=== PATIENT | female | born 1955 | race African-American/Black ===

== ENCOUNTER 2020-11-14 09:53 | Emergency (ER) | payer MEDICAID, SELFPAY ==
[2020-11-14 10:01] VITALS: BP 132/82; PULSE 87; RESP 18; TEMP 36.7; O2SAT 99
--- NOTE | 2020-11-14 10:37 | ED.DENTAL ---
HPI - Dental/Oral General Chief complaint: Dental/Oral Stated complaint: tooth pain Source: patient and RN notes reviewed Mode of arrival: ambulatory History of Present Illness MD Complaint: tooth pain Teeth map: 1. edema and erythema fractured tooth 2. edema and erythema fractured tooth 3. edema and erythema fractured tooth Related Data Home Medications Medication Instructions Recorded Confirmed Vitamins 11/14/20 Allergies Allergy/AdvReac Type Severity Reaction Status Date / Time No Known Allergies Allergy Unverified 09/19/18 13:51 Exam Narrative: GENERAL: This is a well-nourished, well-developed patient, in no apparent distress. HEAD: normocephalic, atraumatic. EYES: PERRL. Sclera clear/white. Vision is grossly intact. EARS: External ears normal, auditory canals clear and without drainage, TMs normal without perforation. Hearing grossly intact. NOSE: External nose normal with no obvious nasal discharge, nares without redness, no rhinorrhea. THROAT: Mucous membranes moist, posterior pharynx clear. Tooth #14,15,16 edema and erythema of the gumline and fractured tooth. Swollen left side of face NECK: Neck supple, non-tender without lymphadenopathy, masses or thyromegaly. CARDIOVASCULAR: Regular rate and rhythm without murmurs, gallops, or rubs. RESPIRATORY: Clear to auscultation. Breath sounds equal bilaterally. No wheezes, rales, or rhonchi. GASTROINTESTINAL: Abdomen soft, non-tender, nondistended. Bowel sounds are active. No hepato-splenomegaly, or palpable masses. No guarding. SKIN: warm, intact with no suspicious lesions or rash, good texture and turgor. NEURO: awake, alert, and oriented to person, place and time. There were no obvious focal neurologic abnormalities. Steady gait EXTREMITIES: Normal range of motion. No edema. No calf tenderness. Negative Homans sign bilaterally. BACK: Nontender without deformity or crepitance. No flank tenderness. Course Course Emergency Course: Patient will receive Augmentin x10 days with pain medication and instructed to follow-up with her dentist Vital Signs Vital signs: Vital Signs Temperature 98.1 F 11/14/20 10:01 Pulse Rate 87 11/14/20 10:01 Respiratory Rate 18 11/14/20 10:01 Blood Pressure 132/82 11/14/20 10:01 Pulse Oximetry 99 11/14/20 10:01 Temperature 98.1 F 11/14/20 10:01 Pulse Rate 87 11/14/20 10:01 Respiratory Rate 18 11/14/20 10:01 Blood Pressure 132/82 11/14/20 10:01 Pulse Oximetry 99 11/14/20 10:01 MDM - Dental/Oral Differential Diagnosis Differential diagnosis: Likely gingival abscess, dental caries, dental abscess and fracture of tooth Discharge Plan Discharge Clinical Impression: Dental caries, Dental abscess Patient Disposition: Home, Self-Care Condition: Stable Instructions: Antibiotic Form, Dental Abscess (ED), Toothache (ED) Additional Instructions: Follow up with dentist What can be done to prevent this health problem? ?[place] your teeth after every meal but at least 2 times a day. Do not dun[place] when you brush. Spend 2 full minutes cleaning all of your teeth. Use a toothpaste with fluoride. ?Use dental floss to clean between your teeth at least every day. ?Try to stay away from foods and drinks that are high in sugar and starch, such as chocolate, sweets, cakes, and drinks that have sugar. ?See your dentist for regular cleaning and checkups. What problems could happen? If the tooth decay is not fixed you could have: ?Pain ?Infection ?Tooth loss Prescriptions: New amoxicillin 500 mg capsule 500 mg PO TID 10 Days Qty: 30 RF: 1 naproxen 500 mg tablet,delayed release (DR/EC) 500 mg PO BID PRN (Reason: pain) Qty: 30 RF: 0 hydrocodone-acetaminophen 10-325 mg tablet 1 tablet PO Q4H PRN (Reason: pain) Qty: 15 RF: 0 No Action Vitamins RF: 0 Follow-up/Referrals: UNKNOWN,DOCTOR [Primary Care Provider] - Time of Disposition: 10:37
== END 2020-11-14 10:40 | disposition home or self-care (01) ==
PROVIDERS: Emergency Provider Nurse Practitioner
DX: K02.9 Dental caries, unspecified (principal); K04.7 Periapical abscess without sinus
CPT/HCPCS: 99213; G0463

== ENCOUNTER 2022-02-18 19:10 | Emergency (ER) | payer MEDICARE, MEDICAID, SELFPAY ==
[2022-02-18 19:54] VITALS: BP 149/80; PULSE 82; RESP 18; TEMP 36.5; O2SAT 100
--- NOTE | 2022-02-18 20:05 | ED.LOWEXIN ---
HPI - Extremity Injury (Lower) General Chief Complaint: Extremity Injury, Lower Stated Complaint: Left Calf Knee Time Seen by Provider: 02/18/22 20:05 Source: patient, RN notes reviewed and old records reviewed Mode of arrival: ambulatory Limitations: no limitations History of Present Illness HPI Narrative: 66-year-old female presents to the [facility] with left calf pain after falling on her mom last night. States that she landed on her knees. Has been applying magnesium a while and icing it. Pain with walking. No swelling or bruising noted. Negative Homans sign. No edema. denies any chest pain or shortness of breath. Related Data Home Medications Medication Instructions Recorded Confirmed atorvastatin 10 mg tablet 10 mg PO DAILY 02/18/22 02/18/22 Allergies Allergy/AdvReac Type Severity Reaction Status Date / Time No Known Allergies Allergy Verified 02/18/22 20:29 Review of Systems Review of Systems: All systems reviewed & are unremarkable except as noted in HPI and below Constitutional: Constitutional: Reports no additional constitutional complaints, Denies chills and Denies fever(s) Eyes: Eyes: Reports no additional eye complaints ENT: Reports system reviewed and no additional complaints, except as documented Cardiovascular: Cardiovascular: Reports no additional cardiovascular complaints Respiratory: Respiratory: Reports no additional respiratory complaints Gastrointestinal: Gastrointestinal: Reports no additional gastrointestinal complaints Musculoskeletal: Musculoskeletal: Reports as per HPI and Reports muscle cramps (Left calf) Integumentary/Breasts: Skin/Breast: Reports system reviewed and no additional complaints, except as docu Neurologic: Reports system reviewed and no additional complaints, except as documented Psychiatric: Psychiatric: Reports no additional psychiatric complaints Allergic/Immunologic: Allergic/Immunologic: Reports no additional allergic/immunologic complaints [facility] Surgical History Surgical History (Updated 02/18/22 @ 20:28 by Samaria Bourne APRN) History of tonsillectomy Social History Social History (Updated 02/18/22 @ 20:27 by Samaria Bourne APRN) Living arrangements: with family Gender identity (if verbalized by the patient): Female Comments At the time of my signature, I reviewed and agree with the nursing past medical, surgical, social, and family history. There is no relevant family history pertinent to the patient complaint. Exam Const: General: healthy appearing, comfortable, no acute distress, well developed, alert and well nourished Nutritional Appearance: well nourished and obese Orientation/consciousness: patient oriented x3 Limitations: no limitations HENMT: Head: normal to inspection Ears: external ears normal Face/Nose/Sinus: Normal external nose present Face and sinus: normal facial exam Mouth: Yes Normal oral and palatal mucosa present, Yes lip normal and Yes moist mucous membranes Eyes: General: appearance normal, both eyes and all related structures Pupils: Equal, round and reactive pupils present Neck: Neck: normal visual inspection, full ROM, no lymphadenopathy and no meningeal signs Chest: Chest palpation & inspection: normal inspection of the chest Resp: Effort & Inspection: normal respiratory effort and no use of accessory muscles Auscultation: clear to auscultation bilaterally, no crackles, no rales, no rhonchi and no wheezes Cardio: Rate: regular rate Rhythm: regular rhythm Back/Spine/Pelvis: Cervical Spine: cervical ROM normal and No Cervical spine tenderness Thoracic/Lumbar Spine: thoracic and lumbar spine normal to inspection and thoraco-lumbar ROM normal Skin: General skin exam: normal color Rashes: no rashes Wounds: no wounds Neuro: General: patient oriented x3, moves all extremities, no meningeal signs and no focal motor deficits Cranial nerves: Yes Equal, round and reactive pupils present Speech: normal s
== END 2022-02-18 20:53 | disposition home or self-care (01) ==
PROVIDERS: Emergency Provider Nurse Practitioner; PCP Nurse Practitioner Family
DX: S86.112A Strain of other muscle(s) and tendon(s) of posterior muscle group at lower leg level, left leg, initial encounter (principal); W19.XXXA Unspecified fall, initial encounter; E78.00 Pure hypercholesterolemia, unspecified
CPT/HCPCS: 99213; G0463

== ENCOUNTER 2022-05-14 16:57 | Emergency (ER) | payer MEDICARE, MEDICAID, SELFPAY ==
--- NOTE | ~2022-05-14 | XR_ITS ---
EXAM: XR shoulder LT min 2V DATE: 05/14/2022 17:30 HISTORY: Left shoulder pain, limited ROM, no injury . COMPARISON: None available. FINDINGS: Normal mineralization. No fracture or dislocation. No lytic or blastic lesion. Moderate AC joint hypertrophy. Glenohumeral narrowing with extensive subchondral cyst formation in the glenoid a nd humeral head, with osteophytosis. Likely rotator cuff calcific tendinitis. No erosion or periostea l change. Soft tissues within normal limits. IMPRESSION: No acute osseous finding in the left shoulder. Moderate-severe glenohumeral arthritic zamzam nge. Reviewed, dictated and finalized at location [facility]. [facility] IMPRESSION: No acute osseous finding in the left shoulder. Moderate-severe madeline ohumeral arthritic change.
[2022-05-14 17:06] VITALS: BP 145/71; PULSE 95; RESP 16; TEMP 36.3; O2SAT 99
--- NOTE | 2022-05-14 17:48 | ED.UPPEXIN ---
HPI - Extremity Injury (Upper) General Chief Complaint: Extremity Injury, Upper Stated Complaint: Left Shoulder Pain Time Seen by Provider: 05/14/22 17:10 Source: patient Mode of arrival: ambulatory Limitations: no limitations History of Present Illness HPI narrative: 66 yo F presents with c/o pain and decreased ROM to L shoulder for the past 2 to 3 days. States she has been stressed and busy due to planning a family members . denies injury. Taking OTC pain medications and not helping pain. All systems reviewed and negative except as noted above. Related Data Allergies Allergy/AdvReac Type Severity Reaction Status Date / Time No Known Allergies Allergy Verified 05/14/22 17:02 Review of Systems Review of Systems: CONSTITUTIONAL: Denies fever, chills, or sweats. EYES: Denies visual changes, redness, or discharge. ENT: Denies rhinorrhea, congestion, sore throat, or otalgia. CARDIOVASCULAR: Denies chest pain, palpitations, or edema. RESPIRATORY: Denies cough or dyspnea. GASTROINTESTINAL: Denies abdominal pain, nausea, vomiting, or diarrhea. GENITOURINARY: Denies dysuria or hematuria. SKIN: Denies rash or itching. MUSCULOSKELETAL: Denies back pain, , or myalgia. Reports L shoulder pain. NEUROLOGIC: Denies headache, numbness, or weakness. PSYCHIATRIC: Denies anxiety or depression. All other systems reviewed are negative, except as documented in HPI. [facility] Surgical History Surgical History (Updated 02/18/22 @ 20:28 by Samaria Bourne APRN) History of tonsillectomy Social History Social History (Updated 02/18/22 @ 20:27 by Samaria Bourne APRN) Living arrangements: with family Gender identity (if verbalized by the patient): Female Comments At time of signature, agree with nursing past medical, surgical, social and family history. There is no relevant family history pertinent to the presenting complaint. Exam Narrative: GENERAL: This is a well-nourished, well-developed patient, in no apparent distress. HEAD: normocephalic, atraumatic. EYES: PERRL. Sclera clear/white. Vision is grossly intact. EARS: External ears normal NOSE: External nose normal NECK: Neck supple, non-tender without lymphadenopathy, masses or thyromegaly. CARDIOVASCULAR: Regular rate and rhythm without murmurs, gallops, or rubs. RESPIRATORY: Clear to auscultation. Breath sounds equal bilaterally. No wheezes, rales, or rhonchi. SKIN: warm, Dry, intact with no suspicious lesions or rash, good texture and turgor. NEURO: awake, alert, and oriented to person, place and time. There were no obvious focal neurologic abnormalities. EXTREMITIES: Tenderness to AC joint of L shoulder with decreased ROM. Can abduct and flex to about 30 degrees. Course Course Level of Care: Express Care Visit Vital Signs Vital signs: Vital Signs Temperature 36.3 C L 05/14/22 17:06 Pulse Rate 95 05/14/22 17:06 Respiratory Rate 16 05/14/22 17:06 Blood Pressure 145/71 H 05/14/22 17:06 Pulse Oximetry 99 05/14/22 17:06 Oxygen Delivery Room Air 05/14/22 17:06 Temperature 36.3 C L 05/14/22 17:06 Pulse Rate 95 05/14/22 17:06 Respiratory Rate 16 05/14/22 17:06 Blood Pressure 145/71 H 05/14/22 17:06 Pulse Oximetry 99 05/14/22 17:06 Oxygen Delivery Room Air 05/14/22 17:06 reviewed MDM - Extremity Injury (Upper) MDM Narrative Medical decision making narrative: discussed x-ray results with pt. Recommend follow up with orthopedics for further evaluation. Imaging Data My impression: agree with radiologist Radiologist's impression: EXAM:? XR shoulder LT min 2V DATE: 05/14/2022 17:30 HISTORY: Left shoulder pain, limited ROM, no injury . COMPARISON:? None available. FINDINGS:? Normal mineralization. No fracture or dislocation. No lytic or blastic lesion. Moderate AC joint hypertrophy. Glenohumeral narrowing with extensive subchondral cyst formation in the glenoid and humeral head, with osteophytosis. Likely r
--- NOTE | 2022-05-14 18:24 | PC.NURSE ---
called and aware of unable to change tramadol and stated to keep [facility].
== END 2022-05-14 18:01 | disposition home or self-care (01) ==
PROVIDERS: Emergency Provider Nurse Practitioner Family; PCP Nurse Practitioner Family
DX: M85.612 Other cyst of bone, left shoulder (principal); M77.8 Other enthesopathies, not elsewhere classified; M19.012 Primary osteoarthritis, left shoulder; E78.00 Pure hypercholesterolemia, unspecified
CPT/HCPCS: 73030; 99213; G0463

== ENCOUNTER 2024-01-26 15:44 | Emergency (ER) | payer MEDICARE, MEDICAID, SELFPAY ==
[2024-01-26 15:53] VITALS: BP 144/78; PULSE 85; RESP 16; TEMP 36.4; O2SAT 99
--- NOTE | 2024-01-26 16:35 | ED.UPPEXIN ---
HPI - Extremity Injury (Upper) General Chief Complaint: Extremity Injury, Upper Stated Complaint: Left Shoulder/Back Pain Time Seen by Provider: 01/26/24 16:36 Source: patient, RN notes reviewed and old records reviewed Mode of arrival: ambulatory Limitations: no limitations History of Present Illness HPI narrative: Patient presents with complaints of left shoulder / back pain that began 3 days ago. 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 Reports that she is having difficulty moving her left shoulder secondary to pain. She denies all injury and trauma. Pain is worse with movement, has been taking Tylenol with no relief Related Data Home Medications Medication Instructions Recorded Confirmed acetaminophen 300 mg-codeine 30 mg 1 tablet PO Q6-12H PRN Pain 01/26/24 01/26/24 tablet blood sugar diagnostic (Accu-Chek 01/26/24 01/26/24 Guide test strips) celecoxib 100 mg capsule 100 mg PO DAILY 01/26/24 01/26/24 lancets (Accu-Chek Softclix 01/26/24 01/26/24 Lancets) losartan 25 mg tablet 25 mg PO DAILY 01/26/24 01/26/24 Allergies Allergy/AdvReac Type Severity Reaction Status Date / Time atorvastatin AdvReac Nausea and Verified 01/26/24 16:41 Vomiting Review of Systems Review of Systems: All systems reviewed & are unremarkable except as noted in HPI and below Constitutional: Constitutional: Reports no additional constitutional complaints ENT: Reports system reviewed and no additional complaints, except as documented Cardiovascular: Cardiovascular: Reports no additional cardiovascular complaints Respiratory: Respiratory: Reports no additional respiratory complaints Gastrointestinal: Gastrointestinal: Reports no additional gastrointestinal complaints Musculoskeletal: Musculoskeletal: Reports no additional musculoskeletal complaints, Reports as per HPI, Reports back pain, Reports radiating pain into limb and Denies tingling PMFSH Surgical History Surgical History (Updated 02/18/22 @ 20:28 by Samaria Bourne APRN) History of tonsillectomy Social History Social History (Updated 02/18/22 @ 20:27 by Samaria Bourne APRN) Living arrangements: with family Gender identity (if verbalized by the patient): Female Comments At the time of my signature, I reviewed and agree with the nursing past medical, surgical, social, and family history. There is no relevant family history pertinent to the patient complaint. Exam Const: General: cooperative, no acute distress, alert and awake Orientation/consciousness: oriented to person, oriented to place and oriented to time HENMT: Head: normal to inspection Neck: Neck: full ROM Resp: Effort & Inspection: normal respiratory effort and able to speak in complete sentences Auscultation: clear to auscultation bilaterally, no crackles, no rales, no rhonchi and no wheezes Cardio: Palpation: normal PMI Rate: regular rate Rhythm: regular rhythm Heart sounds: S1 normal heart sound present and S2 normal heart sound present Back/Spine/Pelvis: Cervical Spine: cervical ROM normal and No Cervical spine tenderness Thoracic/Lumbar Spine: thoraco-lumbar ROM limited, thoraco-lumbar spasm, No thoracic spinal tenderness and No lumbar spinal tenderness Back/spine/pelvis image: 1. pain on palpation Neuro: General: oriented to person, oriented to place and oriented to time Cranial nerves: Yes CN's II-XII intact bilaterally Psych: Appearance: grossly normal Thought process: Normal thought process present Insight: Good insight present (Psych) Judgement: Good judgement present (Psych) Course Course Level of Care: Express Care Visit Vital Signs Vital signs: Vital Signs Temperature 97.5 F L 01/26/24 15:53 Pulse Rate 85 01/26/24 15:53 Respiratory Rate 16 01/26/24 15:53 Blood Pressure 144/78 H 01/26/24 15:53 Pulse Oximetry 99 01/26/24 15:53 Oxygen Delivery Room Air 01/26/24 15:53 Temperature 97.5 F L 1
== END 2024-01-26 17:00 | disposition home or self-care (01) ==
PROVIDERS: Emergency Provider Nurse Practitioner Family; PCP Family Medicine
DX: M25.512 Pain in left shoulder (principal)
CPT/HCPCS: 99213; G0463

== ENCOUNTER 2024-05-24 15:48 | Emergency (ER) | payer MEDICARE, MEDICAID, SELFPAY ==
--- NOTE | 2024-05-24 15:53 | ED.EXTPRO ---
HPI - Extremity Problem General Chief complaint: Extremity Problem,Nontraumatic Stated complaint: Both Legs Pain Time Seen by Provider: 05/24/24 15:54 Source: patient Mode of arrival: ambulatory Limitations: no limitations History of Present Illness HPI Narrative: Haily is a 68-year-old female patient presenting to the clinic today with complaints of left leg pain x1 day. She reports no injury to the leg, no recent travel, no history of blood clotting disorder. No history of DVT, denies any shortness of breath, or chest pain. Has swelling in the left leg with varicose veins. States pain is worse with extension of the leg and with ambulation. Related Data Home Medications ?Medication ?Instructions ?Recorded ?Confirmed ?Last Taken ?Type blood sugar diagnostic (Accu-Chek 01/26/24 01/26/24 Unknown History Guide test strips) celecoxib 100 mg capsule 100 mg PO DAILY 01/26/24 01/26/24 Unknown History lancets (Accu-Chek Softclix 01/26/24 01/26/24 Unknown History Lancets) losartan 25 mg tablet 25 mg PO DAILY 01/26/24 01/26/24 Unknown History Allergies Allergy/AdvReac Type Severity Reaction Status Date / Time atorvastatin AdvReac Nausea and Verified 05/24/24 15:58 Vomiting Review of Systems Review of Systems: Pertinent positives per HPI. Patient denies any fever, chills, rash, headache, visual changes, dizziness, cough, runny nose, sore throat, shortness of breath, chest pain, palpitations, nausea, vomiting, diarrhea, constipation, abdominal pain, or any urinary issues. [facility] Surgical History Surgical History History of tonsillectomy Social History Social History Living arrangements: with family Gender identity (if verbalized by the patient): Female Comments At the time of my signature, I reviewed and agree with the nursing past medical, surgical, social, and family history. There is no relevant family history pertinent to the patient complaint. Exam Narrative: General: Well-developed, morbidly obese, in no apparent distress Head: Normocephalic, atraumatic. Cardio: Regular rate and rhythm, s1 and s2 normal, no murmur appreciated. Resp: Clear to auscultation bilaterally, no rhonchi, rales, wheezing or rubs. Musculoskeletal: No deformity, tender to palpation over the posterior lateral leg, varicose veins in this area, 3+ pitting edema in the left lower extremity, 1+ pitting edema in the right lower extremity, negative Nathan sign, grossly normal range of motion, muscle strength strong and equal, peripheral pulse strong, no cyanosis, walking with a crutch Course Course Emergency Course: Portions of this record may have been created with voice recognition software. Level of Care: Express Care Visit Vital Signs Vital signs: Vital signs reviewed Transfer Transfered to: [facility] Transportation: Other (private car) Transfer rationale: leg pain/calf pain r/o DVT Accepting physician: Mikie Transfer comments: private car MDM - Extremity (Nontraumatic) MDM Narrative Medical decision making narrative: At the time of visit patient is resting comfortably on the exam table. Patient appears to be nontoxic. Plan: Patient is reporting left lower calf pain/knee pain with 3+ pitting edema in the left lower extremity. Does have varicose veins. Recommend transfer to the ER for further evaluation to rule out DVT. Patient agrees and would like to be transfer to [facility] in [place], [place]. Report called to Mikie and she accepts patient for transfer Differential Diagnosis Differential diagnosis: Likely gout, cellulitis, superficial thrombophlebitis, lower extremity edema and deep vein thrombosis of lower extremity Discharge Plan Discharge Clinical Impression: Pain of left calf, Leg edema, left Acute leg pain Qualifiers: Laterality: left Qualified Code(s): M79.605 - Pain in left leg Patient Disposition: Acute Care Hospital Condition: Stable Patient Language: Greenlandic Prescriptions: No Action (DME) Accu-Chek Guide test strips Strip MISCELLANEOUS (DME) lancets [Accu-Chek Softclix Lancets] Misc MISCELLANEOUS losartan 25 mg tablet 25 mg PO DAILY celecoxib 100 mg capsule 100 mg PO DAILY Follow-up/Referrals: Ketty,MD Vicente [Primary Care Provider] - Time of Disposition: 16:30 Quality NIHSS Nursing Documentation ED NIHSS nursing documentation: reviewed/agree
[2024-05-24 15:57] VITALS: BP 158/67; PULSE 97; RESP 16; TEMP 36.3; O2SAT 97
== END 2024-05-24 16:20 | disposition short-term general hospital (02) ==
LOC: EXPCOLL 15:50
PROVIDERS: Emergency Provider Nurse Practitioner Family; PCP Family Medicine
DX: M79.662 Pain in left lower leg (principal); R60.0 Localized edema; I83.92 Asymptomatic varicose veins of left lower extremity
CPT/HCPCS: 99212; G0463